=== PATIENT | male | born 1990 | race Caucasian/White ===

== ENCOUNTER 2024-12-05 18:17 | Emergency (ER) | payer BC, SELFPAY ==
[2024-12-05 18:19] VITALS: BP 159/101
[2024-12-05 18:50] LABS: % Basophils 0.4 % (0-2); % Eosinophils 0.9 % (0-6); % Immature Granulocytes 0.6 % (0-0.5); % Monocytes 6.5 % (1.7-9.3); % Neutrophils 76.6 % (42.2-75.2); Absolute Basophils 0.1 10^3/uL (0-0.2); Absolute Eosinophils 0.1 10^3/uL (0-0.7); Absolute Immature Granulocytes 0.1 10^3/uL (0-0.05); Absolute Lymphocytes 1.8 10^3/uL (1.2-3.4); Absolute Monocytes 0.8 10^3/uL (0.1-0.6); Absolute Neutrophils 8.9 10^3/uL (1.4-6.5); Hematocrit 48.6 % (39.0-52.0); Hemoglobin 16.8 g/dL (13.0-18.0); Mean Corp Hgb Conc. 34.6 g/dL (33.0-37.0); Mean Corpuscular Hgb 30.6 pg (27.0-31.0); Mean Corpuscular Volume 88.5 fL (80.0-94.0); Mean Platelet Volume 9.8 fL (7.4-10.4); Nucleated Red Blood Cells % 0 % (-); Platelet Count 228 10^3/uL (130-400); Red Blood Cell Count 5.49 10^6/uL (4.70-6.10); Red Cell Dist. Width 11.9 % (11.5-14.5); White Blood Cell Count 11.7 10^3/uL (4.8-10.8)
[2024-12-05 18:56] LABS: ALT (SGPT) 52 U/L (0-50); AST (SGOT) 28 U/L (17-59); Albumin 4.6 g/dl (3.5-5.0); Alkaline Phosphatase 81 U/L (38-126); Blood Urea Nitrogen 18 mg/dl (9-20); Calcium 9.3 mg/dl (8.4-10.2); Carbon Dioxide 32 mmol/L (22-30); Chloride 98 mmol/L (98-107); Glucose 111 mg/dl (70-99); Potassium 4.3 mmol/L (3.5-5.1); Sodium 137 mmol/L (135-145); Total Bilirubin 1.2 mg/dl (0.2-1.3); Total Protein 6.9 g/dl (6.3-8.2); eGFR > 60.00
[2024-12-05 19:06] LABS: Troponin I < 0.012 ng/ml
--- NOTE | 2024-12-05 19:28 | ED.GENMED ---
History of Present Illness
General
Chief Complaint: Musculo-Skeletal Complaint
Source: patient
Exam Limitations: none
Time Seen by Provider: 12/05/24 19:20
Nursing documentation reviewed up to this point in time: agreed with
History of Present Illness
History of Present Illness:
Patient to ED with complaint of left upper chest pain radiating to shoulder. Intermittently feels spasming in forearm. He was seen at yesterday and placed on steroid and muscle relaxant without improvement. Pain worse with deep breathing. No
prior history of same. No history of trauma
Past History
Past History
ED Past Medical History: None
Review of Systems
Review of Systems
Allergies reviewed?: Yes
All Other Systems: ROS reviewed and negative except as documented in HPI and ROS
Constitutional: Reports no symptoms
EENT: Reports no symptoms
Respiratory: Reports no symptoms
Cardiac: Reports chest pain (Left anterior chest pain)
ABD/GI: Reports no symptoms
: Reports no symptoms
Skin: Reports no symptoms
Neurological: Reports no symptoms
Psychiatric: Reports no symptoms
Phy Exam
General Physical Exam
General Presentation: well appearing and no apparent distress
General age: appears stated age
General Skin: warm and dry
General Habitus: normal
General Mental: alert
Cardiovascular Exam
Cardiovascular Exam: regular rate/rhythm and no edema
Pulmonary Exam
Pulmonary Exam: lungs clear and no respiratory distress
Musculoskeletal Exam
Musculoskeletal Exam: full ROM and neuro vasc intact
Skin Exam
Skin Exam: normal color, warm/dry and no rash
Psychiatric Exam
Psychiatric Exam: normal mood/affect
Course
Orders/Labs/Results
Orders:
Orders
12/05/24 18:25
Electrocardiogram (*1) Urgent
Reason for Study: Chest Pain
EKG- Treatment ONCE
12/05/24 18:34
Complete Blood Count/With Diff Urgent
Comprehensive Metabolic Panel Urgent
Troponin I Urgent
12/05/24 19:27
Dexamethasone Pf [Decadron] 10 mg PO NOW STA
Ketorolac [Toradol] 60 mg IM NOW STA
12/05/24 20:13
D-Dimer Urgent
12/05/24 21:23
CR Chest - 2 Views Urgent
Comment:
Reason For Exam: left chest pain
Abnormal Lab Results
12/05/24
18:34
WBC 11.7 H 10^3/uL
(4.8-10.8)
Abs Immat Gran (auto) 0.1 H 10^3/uL
(0-0.05)
Absolute Neuts (auto) 8.9 H 10^3/uL
(1.4-6.5)
Absolute Monos (auto) 0.8 H 10^3/uL
(0.1-0.6)
Immature Gran % 0.6 H %
(0-0.5)
Neutrophils % 76.6 H %
(42.2-75.2)
Lymphocytes % 15.0 L %
(20.5-51.1)
Carbon Dioxide 32 H mmol/L
(22-30)
Glucose 111 H mg/dl
(70-99)
ALT 52 H U/L
(0-50)
12/05/24 18:34
12/05/24 18:34
Vital Signs
Initial and Last Documented VS:
Initial Vital Signs
Temp Pulse Resp BP Pulse Ox
97.7 F 64 18 159/101 97
12/05/24 18:19 12/05/24 18:19 12/05/24 18:19 12/05/24 18:19 12/05/24 18:19
Last Documented Vital Signs
Temp Pulse Resp BP Pulse Ox
97.7 F 72 17 140/76 98
12/05/24 18:19 12/05/24 21:23 12/05/24 21:23 12/05/24 21:23 12/05/24 21:23
*Radiology
Radiology exam reviewed: radiology read reviewed
*Pulse Oximetry
Patient hypoxic: no
*EKG
Interpretation: normal
Rate: normal
Rhythm: sinus
*Critical Care Note
Total Time (30-74mins, 75-104mins- exclusive of procedures): Not Applicable
ED Attending Note
-
Portions of this chart may have been created with voice recognition software.� Occasional wrong word or��sound alike� substitutions may have occurred due to the inherent limitations of voice recognition software.
Discharge Plan
Departure
Patient Disposition: Home (Routine Discharge)
Date of Disposition: 12/05/24
Time of Disposition: 21:46
Patient with high blood pressure during this ER visit?: No
Condition: Good
Covid-19: Not Applicable
Discharge Problem:
Cervical radiculopathy
Instructions: Ibuprofen, Radiculopathy of the neck and back (including sciatica)
Prescriptions:
New
hydrocodone-acetaminophen 5-325 mg tablet
1 tab PO Q4H PRN (Reason: Pain) Qty: 14 0RF
Referrals:
Eufemia Daniels I., DO [Active] - Next open appointment
NONE,* [Family Provider] -
Interventions
Interventions:
*Risk Screen - Suicide Last Done: 12/05/24 18:24
*General Assessment Last Done: 12/05/24 19:55
*Neglect/Abuse Screening Last Done: 12/05/24 18:24
*ED COVID-19 Vaccine History Last Done: 12/05/24 18:24
*Nursing Disposition Last Done: 12/05/24 22:02
ED-Musculoskeletal Assessment Last Done: 12/05/24 19:55
Discharge Date and Time
Discharge Date/Time: 12/05/24 22:02
Print Language: CZECH
[2024-12-05] MEDS: DECADRON 10 MG PO (19:48)
[2024-12-05] MEDS: TORADOL 60 MG IM (19:49)
[2024-12-05 21:12] LABS: D-Dimer < 0.27 ug/mlFEU (0.00-0.50)
[2024-12-05 21:23] VITALS: BP 140/76
== END 2024-12-05 22:02 | disposition home or self-care (01) ==
LOC: EMR 18:17
PROVIDERS: Nurse Practitioner; EMERGENCY PHYSICIAN Student in an Organized Health Care Education/Training Program
DX: M54.12 Radiculopathy, cervical region (principal)
CPT/HCPCS: 99283; 96372; 71046; 80053; 84484; 85025; 85379; 93005